=== PATIENT | male | born 1980 | race Caucasian/White ===

== ENCOUNTER 2017-03-04 16:31 | Emergency (ER) | payer OTHER ==
[2017-03-04 17:00] VITALS: RESP 16; TEMP 98.3
[2017-03-04 17:51] LABS: BASO % 0.1 % (0.0-2.0); EOS % 0.1 % (0.0-4.0); HEMOGLOBIN 15.1 g/dL (12.0-18.0); LYMPH % 10.9 % (20.0-40.0); MEAN CELL VOLUME 85.9 fl (80.0-94.0); MEAN CORPUSCULAR HEMOGLOBIN 28.4 pg (27.0-31.0); MEAN PLATELET VOLUME 9.5 fl (7.2-11.7); MONO # 0.3 K/uL (0.0-0.8); MONO % 2.9 % (0.0-10.0); NEUT # 7.7 K/uL (1.8-7.0); NRBC % 0.1 % (0.0-0.0); RBC 5.31 Mil/uL (4.40-5.90); RED CELL DISTRIBUTION WIDTH 13.8 % (11.5-14.5); WHITE BLOOD COUNT 8.9 K/uL (4.8-10.8)
[2017-03-04] MEDS ORDERED: Sodium Chloride 0.9% 1,000 ML IV STA (17:52)
--- NOTE | 2017-03-04 18:18 | ED PDOC ---
HPI: Male Pain Time Seen by Provider: 03/04/17 17:03 Chief Complaint (Nursing): Abdominal Pain Chief Complaint (Provider): dysuria History Per: Patient History/Exam Limitations: no limitations Onset/Duration Of Symptoms: Days (x2) Current Symptoms Are (Timing): Still Present Additional Complaint(s): 36 year old male who presents to the emergency department with a complaint of painful urination associated with lower abdominal pain, left-sided flank pain and diarrhea ongoing since yesterday. Denied any fever, chills or bloody urine. PMD: none provided Past Medical History Reviewed: Historical Data, Nursing Documentation, Vital Signs Vital Signs: Last Vital Signs Temp 98.3 F 03/04/17 16:56 Pulse 71 03/04/17 16:56 Resp 16 03/04/17 16:56 BP 155/106 H 03/04/17 17:39 Pulse Ox 100 03/04/17 16:56 - Medical History PMH: No Chronic Diseases, HTN Other PMH: Thrombocytopenia - Surgical History Surgical History: Tonsillectomy Denies: No Surg Hx - Family History Family History: States: Unknown Family Hx - Social History Current smoker - smoking cessation education provided: No Ex-Smoker (has not smoked in the last 12 months): No Alcohol: None Drugs: Denies - Home Medications Home Medications: Ambulatory Orders Medication Instructions Recorded Enalapril Maleate [Vasotec] 2.5 mg PO DAILY #10 tab 07/27/14 Ondansetron [Zofran] 4 mg PO Q8H #9 tab 07/27/14 Naproxen [Naprosyn] 500 mg PO BID PRN #15 tablet 03/04/17 Tamsulosin [Flomax] 0.4 mg PO DAILY #14 cap 03/04/17 oxyCODONE/Acetaminophen [Percocet 1 tab PO Q6H PRN #15 tab 03/04/17 5/325 mg Tab] - Allergies Allergies/Adverse Reactions: Allergies Allergy/AdvReac Type Severity Reaction Status Date / Time No Known Allergies Allergy Verified 07/27/14 20:55 Review of Systems ROS Statement: Except As Marked, All Systems Reviewed And Found Negative Constitutional: Negative for: Fever, Chills Gastrointestinal: Positive for: Abdominal Pain (lower), Diarrhea Genitourinary Male: Positive for: Dysuria. Negative for: Hematuria Musculoskeletal: Positive for: Back Pain (left flank) Physical Exam - Reviewed Nursing Documentation Reviewed: Yes Vital Signs Reviewed: Yes - Physical Exam Appears: Positive for: Well, Non-toxic, No Acute Distress Head Exam: Positive for: ATRAUMATIC, NORMAL INSPECTION, NORMOCEPHALIC Cardiovascular/Chest: Positive for: Regular Rate, Rhythm, Chest Non Tender Respiratory: Positive for: Normal Breath Sounds, Decreased Breath Sounds. Negative for: Wheezing, Respiratory Distress Gastrointestinal/Abdominal: Positive for: Normal Exam, Soft. Negative for: Tenderness Back: Positive for: Normal Inspection. Negative for: L CVA Tenderness, R CVA Tenderness Neurologic/Psych: Positive for: Alert (x3), Oriented - Laboratory Results Result Diagrams: 03/04/17 17:40 03/04/17 17:40 - ECG O2 Sat by Pulse Oximetry: 100 (RA) Pulse Ox Interpretation: Normal Medical Decision Making Medical Decision Making: Initial Impression: UTI; pyelonephritis; kidney stones Initial Plan: * CT ABD/pelvis without contrast * CMP * Urine dipstick * CBC * Catapres 0.1mg PO * NS 1,000ml IV per 1,000mls/hr * Urine culture * Urinalysis Accession No. : [id number] Patient Name / ID : NATE CHAVARRIA / [id number] Exam Date : 03/04/2017 18:08:40 ( Approved ) Study Comment : Sex / Age : M / 36Y Creator : Gigi Mccrary MD Dictator : Gigi Mccrary MD Business Transformation Consultant : Marketing And Development Coordinator : Gigi Mccrary MD Approver2 : Report Date : 03/04/2017 18:36:26 My Comment : PROCEDURE: CT Abdomen and Pelvis without intravenous contrast HISTORY: L flank pain COMPARISON: None. TECHNIQUE: Unenhanced study. Neither oral nor intravenous contrast administered. Radiation dose: Total exam DLP = 1022.31 mGy-cm. This CT exam was performed using one or more of the following dose reduction techniques: Automated exposure control, adjustment of the mA and/or kV according to patient size, and/or use of iterative reconstruction technique. FINDINGS: LOWER THORAX: Small hiatal hernia. Otherwise unremarkable lower thorax LIVER: 1.8 cm mass near the dome of the liver in the right hepatic lobe. This is a nonspecific finding. Elective followup recommended. GALLBLADDER AND BILE DUCTS: Cholelithiasis without CT evidence of acute cholecystitis. PANCREAS: Unremarkable. No gross lesion or ductal dilatation. SPLEEN: Unremarkable. ADRENALS: Unremarkable. No mass. KIDNEYS AND URETERS: Left kidney in ureter: Edematous left kidney, hydronephrosis, hydroureter. A 2 mm calculus is at the left ureterovesical junction. No additional upper tract calculi are identified. Right kidney in ureter: Unremarkable. No hydronephrosis. No solid mass. VASCULATURE: Unremarkable. No aortic aneurysm. BOWEL: Unremarkable. No obstruction. No gross mural thickening. APPENDIX: Unremarkable. Normal appendix. PERITONEUM: Unremarkable. No free fluid. No free air. LYMPH NODES: Unremarkable. No enlarged lymph nodes. BLADDER: Unremarkable. REPRODUCTIVE: Unremarkable. BONES: No acute fracture. OTHER FINDINGS: None. IMPRESSION: 1. Obstructing calculus at the left ureterovesical junction measuring 2 mm. 2. Cholelithiasis without CT evidence of acute cholecystitis. Additional benign and/or incidental findings described above. Scribe Attestation: Documented by Maddie Major, acting as a scribe for Dafne Sawyer MD. Provider Scribe Attestation: All medical record entries made by the Scribe were at my direction and personally dictated by me. I have reviewed the chart and agree that the record accurately reflects my personal performance of the history, physical exam, medical decision making, and the department course for this patient. I have also personally directed, reviewed, and agree with the discharge instructions and disposition. Disposition - Clinical Impression Clinical Impression: Ureteral calculus, Hydronephrosis - Disposition Referrals: Jose E Enrique Jr., MD [Staff Provider] - Disposition: Routine/Home Disposition Time: 21:48 Condition: STABLE Prescriptions: Naproxen [Naprosyn] 500 mg PO BID PRN #15 tablet PRN Reason: Pain, Moderate (4-7) oxyCODONE/Acetaminophen [Percocet 5/325 mg Tab] 1 tab PO Q6H PRN #15 tab PRN Reason: Pain, Severe (8-10) Tamsulosin [Flomax] 0.4 mg PO DAILY #14 cap Instructions: Renal Colic (ED), Hydronephrosis (ED), Ureteral Stones (ED) Forms: [employer] (Turkmen)
[2017-03-04 18:28] LABS: ALB/GLOB RATIO 1.3 (1.0-2.1); ALBUMIN 4.8 g/dL (3.5-5.0); ALT/SGPT 28 U/L (21-72); AST/SGOT 19 U/L (17-59); BLOOD UREA NITROGEN 14 mg/dl (9-20); CALCIUM 9.6 mg/dL (8.4-10.2); GFR AFRICAN-AMERICAN > 60; GFR NON-AFRICAN AMERICAN > 60
--- NOTE | 2017-03-04 18:38 | CT ---
PROCEDURE: CT Abdomen and Pelvis without intravenous contrast HISTORY: L flank pain COMPARISON: None. TECHNIQUE: Unenhanced study. Neither oral nor intravenous contrast administered. Radiation dose: Total exam DLP = 1022.31 mGy-cm. This CT exam was performed using one or more of the following dose reduction techniques: Automated exposure control, adjustment of the mA and/or kV according to patient size, and/or use of iterative reconstruction technique. FINDINGS: LOWER THORAX: Small hiatal hernia. Otherwise unremarkable lower thorax LIVER: 1.8 cm mass near the dome of the liver in the right hepatic lobe. This is a nonspecific finding. Elective followup recommended. GALLBLADDER AND BILE DUCTS: Cholelithiasis without CT evidence of acute cholecystitis. PANCREAS: Unremarkable. No gross lesion or ductal dilatation. SPLEEN: Unremarkable. ADRENALS: Unremarkable. No mass. KIDNEYS AND URETERS: Left kidney in ureter: Edematous left kidney, hydronephrosis, hydroureter. A 2 mm calculus is at the left ureterovesical junction. No additional upper tract calculi are identified. Right kidney in ureter: Unremarkable. No hydronephrosis. No solid mass. VASCULATURE: Unremarkable. No aortic aneurysm. BOWEL: Unremarkable. No obstruction. No gross mural thickening. APPENDIX: Unremarkable. Normal appendix. PERITONEUM: Unremarkable. No free fluid. No free air. LYMPH NODES: Unremarkable. No enlarged lymph nodes. BLADDER: Unremarkable. REPRODUCTIVE: Unremarkable. BONES: No acute fracture. OTHER FINDINGS: None. IMPRESSION: 1. Obstructing calculus at the left ureterovesical junction measuring 2 mm. 2. Cholelithiasis without CT evidence of acute cholecystitis. Additional benign and/or incidental findings described above.
[2017-03-04 20:32] VITALS: BP 151/88; PULSE 81
[2017-03-04 21:32] LABS: URINE BACTERIA RARE (<OCC); URINE BILIRUBIN NEGATIVE (NEGATIVE); URINE BLOOD LARGE (NEGATIVE); URINE CLARITY CLEAR (Clear); URINE COLOR STRAW (YELLOW); URINE GLUCOSE (UA) NEG (Normal); URINE LEUKOCYTE ESTERASE NEG Leu/uL (Negative); URINE NITRATE NEGATIVE (NEGATIVE); URINE PROTEIN NEGATIVE (NEGATIVE); URINE UROBILINOGEN 0.2-1.0 mg/dL (0.2-1.0)
[2017-03-06 16:27] VITALS: O2SAT 100
== END 2017-03-04 22:05 | disposition home or self-care (01) ==
LOC: H.ER 16:31
DX: K80.20 Calculus of gallbladder without cholecystitis without obstruction (principal); N13.6 Pyonephrosis; Z87.891 Personal history of nicotine dependence
CPT/HCPCS: 74176; 80053; 81003; 85025; 87086; 87804; 96360; 99283; J7040